=== PATIENT | male | born 1970 | race Caucasian/White ===

== ENCOUNTER 2021-03-29 12:33 | Emergency (ER) | payer OTHER, BC ==
[~2021-03-29] VITALS: Ht 182.9 cm; Wt 108.9 kg
[2021-03-29] MEDS ORDERED: KETOROLAC TROMETHAMINE 60 MG INJ IM ONE ×2 (13:30→13:31)
--- NOTE | 2021-03-29 14:20 | NUR ---
Pt was upset about the wait time and walked out of ER from room 3. Noted pt with steady gait. Pt was given verbal ACI by before leaving.
== END 2021-03-29 14:50 | disposition home or self-care (01) ==
LOC: ER 12:33
DX: S13.9XXA Sprain of joints and ligaments of unspecified parts of neck, initial encounter (principal); V59.59XA Passenger in pick-up truck or van injured in collision with other motor vehicles in traffic accident, initial encounter; Y92.411 Interstate highway as the place of occurrence of the external cause; M50.30 Other cervical disc degeneration, unspecified cervical region; M19.041 Primary osteoarthritis, right hand
CPT/HCPCS: 72050; 73110; 73130; 96372; 99284; J1885; A4663